=== PATIENT | female | born 1975 | race Caucasian/White ===

== ENCOUNTER 2023-04-02 10:08 | Outpatient (CLI) | payer OTHER, SELFPAY ==
--- NOTE | ~2023-04-02 | DEXA_ITS ---
Bone Density Report Name: DOROTHY ROJAS Age: 47 Sex: Female Ethnicity: White Date of : 1975 Indication: postmenopausal; height loss; hysterectomy; Referring Provider: NIKKI, JACQUES Saeed Study: Bone densitometry was performed. Exam Date: April 02, 2023 Accession number: [id number] Bone Density: Region BMD T-score Z-score Classification AP Spine(L1, L2, L4) 0.854 -1.6 -1.0 Osteopenia Femoral Neck (Left) 0.694 -1.4 -0.7 Osteopenia Total Hip (Left) 0.908 -0.3 0.2 Normal Femoral Neck (Right) 0.620 -2.1 -1.4 Osteopenia Total Hip (Right) 0.859 -0.7 -0.2 Normal Femoral Neck Mean 0.657 -1.7 -1.0 Osteopenia Total Hip Mean 0.883 -0.5 0.0 Normal World Health Organization criteria for BMD impression classify patients as: Normal (T-score at or above -1.0), Osteopenia (T-score between -1.0 and -2.5), or Osteoporosis (T-score at or below -2.5). 10-year Fracture Risk: FRAX not reported because: Treated for osteoporosis Clinical Information Provided by Patient: Is being treated for osteoporosis Has used the following medications: Actonel (i.e. risedronate), Vitamin D Has the following medical conditions: Hysterectomy Patient maximum height was 67 Menopause Age: 30 No regular weight bearing exercise Does not regularly consume dairy products Drinks caffeinated beverages Onset of menses at age 13 Number of children 1 Impression: The patient has low bone mass, based on the Right Femoral Neck T-score. Discussion: It is important to ask patients whether they are taking their medications and to encourage continued and appropriate compliance with their osteoporosis therapies to reduce fracture risk. It is also important to review their risk factors and encourage appropriate calcium and vitamin D intakes, exercise, fall prevention and other lifestyle measures. Follow-Up: Consider a repeat BMD and Vertebral Fracture Assessment (VFA) exam in 2 years or sooner if medically necessary, to reassess this patient's status. Reported by: Dr. Parvez Williamson on 04/02/2023 11:10:00 AM. Reviewed, dictated and finalized at location A.
--- NOTE | ~2023-04-02 | MM_ITS ---
EXAMINATION: MM scrn jimmie implant BI w nikki HISTORY: Screening mammogram TECHNIQUE: Craniocaudal and mediolateral oblique 3-D tomosynthesis images with implant displacement a nd synthetic 2-D images were generated. Craniocaudal and mediolateral oblique views of the breasts wi thout implant displacement were obtained using full field digital mammography. CAD analysis was submi tted and interpreted. COMPARISON: No prior mammogram is available for comparison at this institution. BREAST PARENCHYMAL COMPOSITION: The breasts are heterogeneously dense, which may obscure small masses . FINDINGS: There is no evidence of suspicious mass, calcification, or architectural distortion to sugg est malignancy in either breast. IMPRESSION: 1. No mammographic evidence of malignancy. 2. Recommend routine screening mammography in one year. BI-RADS Category 1: Negative Reviewed, dictated and finalized at location A. [employer]INE OPERATOR
== END 2023-04-02 10:09 | disposition home or self-care (01) ==
LOC: CHSIMG 10:10
PROVIDERS: PCP Internal Medicine; Visit Provider Internal Medicine
DX: Z12.31 Encounter for screening mammogram for malignant neoplasm of breast (principal); Z78.0 Asymptomatic menopausal state; M85.89 Other specified disorders of bone density and structure, multiple sites
CPT/HCPCS: 77063; 77067; 77080

== ENCOUNTER 2023-07-22 00:17 | Day surgery (SDC) | payer OTHER, SELFPAY ==
[2023-05-20 13:52] VITALS: BMI 32.0
--- NOTE | 2023-06-13 12:58 | SUR.PREOP ---
Patient called regarding upcoming procedure. Reviewed preop instructions, appointment times, and procedure prep.
--- NOTE | 2023-06-16 14:53 | SUR.PREOP ---
Patient called and said she ate solid foods today. Patient was rescheduled to Jul 21 at 900am.
[2023-07-09 16:11] VITALS: BMI 32.0
--- NOTE | 2023-07-18 13:56 | SUR.PREOP ---
Patient called regarding upcoming procedure. Voicemail left regarding appointment times.
--- NOTE | 2023-07-21 14:33 | P.HP_ITS ---
History of Present Illness History of Present Illness Consent: Risks, benefits, and alternatives have been discussed and questions answered. Patient agrees to proceed with procedure. Chief complaint: neoplasm screening Narrative: Antonieta Cordova is a 47 year old female Referred for colon cancer screening. 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 Gender identity (if verbalized by the patient): Female Sexual Orientation (if Verbalized by the Patient): Straight or Heterosexual Spiritual care concerns: No Meds Home Medications and Allergies Home Medications Medication Instructions Recorded Confirmed Type estradiol 1 mg tablet 1 mg PO DAILY #90 tabs 04/22/22 05/20/23 Rx citalopram 40 mg tablet 40 mg PO DAILY 07/02/22 05/20/23 History risedronate 35 mg tablet 35 mg PO WEEKLY 07/02/22 05/20/23 History rizatriptan 10 mg disintegrating See Rx Instructions PO .COMPLEX 07/02/22 05/20/23 History tablet Allergies Allergy/AdvReac Type Severity Reaction Status Date / Time alendronate sodium AdvReac Severe Swelling Verified 05/20/23 13:53 Exam Const: General: alert Orientation/consciousness: patient oriented x3 Resp: Auscultation: clear to auscultation bilaterally Cardio: Rhythm: regular rhythm GI: GI Palp: Yes Soft to palpation and No Tenderness to palpation present (GI) Neuro: General: patient oriented x3 Assessment and Plan Assessment and plan (1) Colon cancer screening: Code(s): Z12.11 - Encounter for screening for malignant neoplasm of colon Status: Acute Assessment and Plan: Colonoscopy with possible biopsy or polypectomy or cautery or injection of substances.
[2023-07-22 07:51] VITALS: BP 125/74; PULSE 86; RESP 18; TEMP 37.1; O2SAT 100; BMI 30.7
[2023-07-22] MEDS: LACTATED RINGERS 1,000 ML 150 ML IV CONT (08:08)
--- NOTE | 2023-07-22 08:43 | P.PNAN_ITS ---
Anes - Initial Pre Proc Eval Procedure: Operation Date: 07/22/23 09:00 Proposed Procedures p Screening Colonoscopy - Miller Varner MD Date/Time: 07/22/23 08:43 Surgeon: Miller Varner MD Pre Op Diagnosis: neoplasm screening Patient Data Age: 47 Gender: F Height: 1.68 m Weight: 86.3 kg Last Vital Signs Temp 98.7 F 07/22/23 07:51 Pulse 86 07/22/23 07:51 Resp 18 07/22/23 07:51 BP 125/74 07/22/23 07:51 Pulse Ox 100 07/22/23 07:51 O2 Del Method Room Air 07/22/23 07:51 Allergies Allergy/AdvReac Type Severity Reaction Status Date / Time alendronate sodium AdvReac Severe Swelling Verified 05/20/23 13:53 Home Medications Medication Instructions Recorded Confirmed Type estradiol 1 mg tablet 1 mg PO DAILY #90 tabs 04/22/22 05/20/23 Rx citalopram 40 mg tablet 40 mg PO DAILY 07/02/22 05/20/23 History risedronate 35 mg tablet 35 mg PO WEEKLY 07/02/22 05/20/23 History rizatriptan 10 mg disintegrating See Rx Instructions PO .COMPLEX 07/02/22 05/20/23 History tablet Patient hx anesthesia problems: none Family hx anesthesia problems: none Results Review: All pre-operative results and documents have been reviewed as part of the pre- operative evaluation. 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 Gender identity (if verbalized by the patient): Female Sexual Orientation (if Verbalized by the Patient): Straight or Heterosexual Spiritual care concerns: No Anes - Eval Final PreProcedure Day of Procedure 07/22/23 08:43 Patient weight: obese Heart: regular rate and rhythm Lungs: clear to auscultation Airway: Mallampati scale class II Neurological: alert and oriented Last oral intake: >/= 8 hours ASA classification: II Emergent: no Anesthetic plan: proceed Anesthesia type and monitoring: general GIVS and standard monitoring Results Review: All pre-operative results and documents have been reviewed as part of the pre- operative evaluation. Informed Consent: The patient's anesthetic plan and its attendant risks and benefits were discussed with the patient/family/POA. Questions were solicited and answers provided to the satisfaction of the patient/family/POA.
[2023-07-22 09:03] VITALS: BP 114/58; PULSE 62; RESP 21; O2SAT 98
[2023-07-22 09:13] VITALS: BP 111/63; PULSE 59; RESP 17; O2SAT 98
[2023-07-22 09:23] VITALS: BP 120/62; PULSE 57; RESP 20; O2SAT 98
== END 2023-07-22 09:27 | disposition home or self-care (01) ==
PROVIDERS: PCP Internal Medicine; Visit Provider Internal Medicine Gastroenterology
PROC: 0DJD8ZZ Inspection of Lower Intestinal Tract, Via Natural or Artificial Opening Endoscopic (ICD-10-PCS; CPT 45378; principal; 2023-07-22 09:00)
DX: Z11.2 Encounter for screening for other bacterial diseases (principal); F41.9 Anxiety disorder, unspecified; Z79.890 Hormone replacement therapy; Z79.899 Other long term (current) drug therapy
CPT/HCPCS: 45378; J2704; J7120